=== PATIENT | female | born 1975 | race Caucasian/White ===

== ENCOUNTER 2016-09-10 05:59 | Inpatient (IN) | payer OTHER ==
[~2016-09-10] VITALS: Ht 160 cm; Wt 58.8 kg
[2016-09-10] VITALS (23 sets, daily range): BP systolic 94–140; BP diastolic 56–83; PULSE 56–86; RESP 12–18; Ht 160 cm; Wt 58.8 kg
[~2016-09-10 05:59] MED LIST: HYDR-762 PO
[2016-09-10] MEDS ORDERED: METOCLOPRAMIDE 10 MG INJ ONE (06:46)
[2016-09-10] MEDS ORDERED: SUCCINYLCHOLINE CHLORIDE 100 MG/5 ML SYG IV ONE (06:46)
[2016-09-10] MEDS ORDERED: FENTAnyl 50 MCG/ML VIAL ONE (06:46)
[2016-09-10] MEDS ORDERED: PROPOFOL 20 ML ONE (06:46)
[2016-09-10] MEDS ORDERED: ROCURONIUM 50 MG INJ ONE (06:46)
[2016-09-10] MEDS ORDERED: ONDANSETRON 4 MG INJ ONE (06:46)
[2016-09-10] MEDS ORDERED: CEFAZOLIN 1 GM INJ ONE (06:47)
--- NOTE | 2016-09-10 06:52 | PREOPHP ---
DATE OF ADMISSION: 09/10/2016 HISTORY OF PRESENT ILLNESS: This is a 40-year-old lady, 4, para 4. Her last normal menstru al period was a few days prior to admission. She was admitted for supracervical hysterectomy, possi ble REGINA and BSO. This patient bleeds very heavy with her periods associated with blood clots for ma ny months and getting worse up to the time of admission. She had since known to have fibroid uterus . She had cervical polypectomy and endometrial biopsy done and the biopsy was normal. She never gautam d any abnormal Pap smear before. She also has chronic pelvic pain on the lower abdomen radiating to the back. She is known to be anemic as well. PAST PERSONAL HISTORY: No history of diabetes, TB, asthma. ALLERGIES: NO ALLERGIES. SOCIAL HISTORY: The patient does not smoke. She does not drink. MEDICATIONS: She takes iron. GYNECOLOGIC HISTORY: She had 4 sections. FAMILY HISTORY: Mother had cancer. She is 4, para 4 with 4 C-sections. REVIEW OF SYSTEMS: CARDIOVASCULAR: No chest pains. RESPIRATORY: No cough. GASTROINTESTINAL: No diarrhea, no vomiting. GENITOURINARY: No dysuria. PHYSICAL EXAMINATION: GENERAL: Reveals a conscious coherent lady and in no acute distress. VITAL SIGNS: Her blood pressure 120/80, pulse rate 80 per minute, respirations 16 per minute. BREASTS, HEART, AND LUNGS: Within normal limits. ABDOMEN: Soft. No organomegaly. PELVIC: Revealed the cervix to be firm, uterus about 18 weeks size, and adnexa were negative for ma sses. RECTAL: Confirmed the pelvic findings. EXTREMITIES: No pedal edema. ADMITTING DIAGNOSES: 1. Fibroid uterus. 2. Menorrhagia. 3. Anemia. 4. Chronic pelvic pain. PLAN: The patient is planned to have the above procedure. Dictated By: VARGAS REDDY MD NS/NTS Conf#: [id number] DID#: [id number] CC: VARGAS REDDY MD;*EndCC*
[2016-09-10] MEDS ORDERED: VASOPRESSIN 20 UNITS INJ ONE (07:03)
[2016-09-10] MEDS ORDERED: MEPERIDINE 25 MG INJ IV PRN (07:30)
[2016-09-10] MEDS ORDERED: ONDANSETRON 4 MG INJ IV PRN ×2 (07:30→14:00)
[2016-09-10] MEDS ORDERED: FENTAnyl 50 MCG/ML VIAL IV PRN (07:30)
[2016-09-10] MEDS ORDERED: HYDROmorphONE (0.2 MG/ML) 10ML SYG IV PRN ×3 (07:30)
[2016-09-10] MEDS ORDERED: NALOXONE (0.4 MG/ML) INJ IV PRN (07:30)
[2016-09-10] MEDS ORDERED: HYDROmorphONE 0.2 MG/ML PCA IV SCH ×2 (07:30→15:18)
[2016-09-10] MEDS: FENTAnyl 50 MCG/ML VIAL IV PRN ×2 (09:29→09:41)
[2016-09-10] MEDS ORDERED: DIPHENHYDRAMINE 50 MG INJ ONE (09:56)
[2016-09-10] MEDS ORDERED: BISACODYL 10 MG SUPP PR PRN (10:00)
[2016-09-10] MEDS ORDERED: ACETAMINOPHEN 500 MG TAB PO PRN (12:30)
[2016-09-10] MEDS: LACTATED RINGER'S 1,000 ML IV SCH ×3 (13:00→22:34)
--- NOTE | 2016-09-10 13:22 | OPR ---
DATE OF OPERATION: 09/10/2016 PREOPERATIVE DIAGNOSIS: Chronic pelvic pain, menorrhagia, and fibroid uterus. POSTOPERATIVE DIAGNOSIS: Chronic pelvic pain, menorrhagia, fibroid uterus, plus severe pelvic and a bdominal adhesions, polycystic ovaries and perineal relaxation. SURGEON: Vargas Frankel MD SAMPLE STITCHER: Otto Mullen MD ANESTHESIA: General. OPERATION PERFORMED: Exploratory laparotomy, supracervical hysterectomy, lysis of severe pelvic and abdominal adhesions, vaginal vault suspension and omental biopsy. OPERATIVE TECHNIQUE: Under general anesthesia, the patient was prepped and draped in the usual [facility] ion for abdominal surgery. After checking for the effect of the anesthesia, a Pfannenstiel incision , the previous scar was excised, a 14 cm skin incision was performed. The incision was carried from the skin up to the fascia. Upon opening the skin up to the fascia, small blood vessels were noted to be oozing and these were all cauterized. Fascia was opened transversely followed by splitting th e muscles vertically and the peritoneum vertically. Upon opening the abdominal cavity, the omentum was noted to be attached all over the parietal peritoneum. All these adhesions had to be lysed by s harp and blunt dissection. Then, the uterus was noted deeply attached to the anterior peritoneal wa ll from a thick band of adhesions. All these adhesions had to be lysed by sharp and blunt dissectio n, then the uterus was free. The left tube and the left ovary and right tube and the right ovary we re attached to the right pelvic wall. All these adhesions were lysed by sharp and blunt dissection. Both ovaries were noted to be of normal size with some small follicular cysts. Both tubes were he althy looking. Then, the uterus was pulled back from the pelvic cavity with the aid of a tenaculum. The uterus was noted to be about 8 weeks' size and soft. Then, the left utero-ovarian, left uterotubal ligament w as grasped with the Alexus as well as the right uterotubal and right utero-ovarian ligament, and the se were used for traction. The left round ligament was grasped with 2 Kochers and cut. A stick tie with 0 Vicryl was used and tagged. The left broad ligament was skeletonized for the development of the bladder flap. The left utero-ovarian, left uterotubal ligament was grasped with 2 Peterson clamp s and pulled back with a straight Alexus and cut. At first, a free tie with 0 Vicryl was used follo wed by Peterson suture. Bleeders were checked and there was no bleeding noted. Then, the same thing was done on the right side. Right round ligament was grasped with 2 Kochers and cut, a stick tie wi th 0 Vicryl was used and tagged. The right broad ligament was skeletonized for the development of t he bladder flap. The right utero-ovarian and right uterotubal ligament was grasped with 2 Peterson cl amps and pulled back with a straight Alexus and cut. At first a free tie with 0 Vicryl was used fol lowed by Peterson suture. Bleeders were checked and there was no bleeding noted. Then, the broad lig ament on both sides were skeletonized for the development of the bladder flap. Then, the left uteri ne vessels were brought to view. The left uterine vessels were grasped with 2 Peterson clamps and pul led back with a straight Alexus and cut. A stick tie with 0 Vicryl was used on its clamp. Same thi ng was done on the right side. The right uterine vessels were grasped with 2 Peterson clamps and pull ed back with a straight Alexus and cut. A stick tie with 0 Vicryl was used on its clamp. Bleeders were checked and there was no bleeding noted. Once again, the bladder was from the cervix by sharp and blunt dissection. About 5 more K ochers were placed at the paracervical tissue on the left and right sides and on each clamp the tiss ue was cut and a stick tie with 0 Vicryl was used. Bleeders were checked and there was no bleeding noted. Then, at first the body of the uterus was excised as the pelvis was noted to be deep. The r emaining cervix was grasped with 2 single-tooth tenaculums after placing 5 Kochers at the paracervic al tissue on the left and right sides, another piece of cervix was excised. Then, the remaining cer vix was grasped with 2 single-tooth tenaculum. Once again, the bladder was from the cervi x by sharp and blunt dissection. About 4 more Kochers were placed at the paracervical tissue on the left and right sides and on each clamp the tissue was cut and a stick tie with 0 Vicryl was used. Another piece of cervix was left. Two-thirds of the cervix was removed and one-third was left behin d, as this patient wanted to go only for supracervical hysterectomy. Then, the remaining cervix was grasped with 2 singe-tooth tenaculums and the remaining cervix was sutured in layers using 0 Vicryl continuous suture. Three layers were put in to close the cervix. The right angle of the cervix wa s sutured with the right paracervical tissue and in turn tied with the right round ligament for vagi nal vault suspension as it was noted to be loose. The vagina was noted to be loose. The same thing was done on the left side. Irrigation was done to check for any bleeders and there was no bleeding noted. After checking for a ny bleeders in which there were none, then all the stumps were checked for any bleeders and there wa s no bleeding noted. As mentioned, vaginal vault suspension was done on the left and right sides. Then, after irrigation, after checking for any bleeders in which there were none, then the raw area was covered with Surgicel. Then, after removing the body of the uterus, as the uterus was pulled ou t from the pelvic cavity, then the self-retaining retractor was put in. Then, the remainder of the hysterectomy was done with a self-retaining retractor. The bowels were packed away from the operati ve field with the aid of 6 wet lap sponges, then the bladder blade was put in place. After the procedure, after checking for any bleeders in which there were none and after correct spon ge count, needle count and instrument count, the abdomen was closed in the usual fashion using 0 Shashank ryl for the peritoneum, 0 Vicryl for the muscles, for the fascia 0 Vicryl continuous stitch was used followed by a few [id number] sutures for the subcutaneous tissue, it was closed with 3-0 Vicry l and the skin was closed with 3-0 Vicryl subcuticular suture was used. The patient tolerated the p rocedure well. Estimated blood loss about 200 mL. Vital signs were stable during and after the pro cedure. Also, omentum that was attached to the parietal peritoneum, a piece of omentum was excised and sent to pathology. Dictated By: VARGAS FRANKEL MD NS/NTS Conf#: [id number] DID#: [id number] CC: VARGAS FRANKEL MD;*[facility]*
[2016-09-10] MEDS ORDERED: DIPHENHYDRAMINE 50 MG INJ IV PRN (14:00)
[2016-09-10] MEDS: HYDROmorphONE 1 MG/ML SYG IV PRN ×3 (17:15→23:02)
[2016-09-11] MEDS: HYDROmorphONE 1 MG/ML SYG IV PRN ×4 (02:04→11:41)
[2016-09-11] MEDS: LACTATED RINGER'S 1,000 ML IV SCH ×5 (04:52→23:48)
[2016-09-11 06:00] LABS: ADD SCAN DIFF NO
[2016-09-11] MEDS ORDERED: BISACODYL 10 MG SUPP PR ONE ×2 (06:00→16:00)
[2016-09-11] MEDS ORDERED: MAGNESIUM HYDROXIDE 30ML CUP PO ONE (06:00)
[2016-09-11] MEDS: MAGNESIUM HYDROXIDE 30ML CUP PO SCH ×3 (06:00→16:57)
[2016-09-11 06:04] LABS: BASOPHILS % 0.4 % (0.0-2.0); EOSINOPHILS % 0.4 % (0.0-7.0); HEMATOCRIT 29.9 % (37.0-47.0); HEMOGLOBIN 9.5 g/dl (12.0-16.0); LYMPHOCYTES # 0.6 10^3/ul (0.8-2.9); LYMPHOCYTES % 12.2 % (15.0-51.0); MEAN CORPUSCULAR HEMOGLOBIN 27.7 pg (29.0-33.0); MEAN CORPUSCULAR HGB CONC 31.8 g/dl (32.0-37.0); MEAN CORPUSCULAR VOLUME 87.2 fl (82.0-101.0); MEAN PLATELET VOLUME 11.3 fl (7.4-10.4); MONOCYTE # 0.5 10^3/ul (0.3-0.9); MONOCYTES % 9.8 % (0.0-11.0); NEUTROPHIL # 3.9 10^3/ul (1.6-7.5); PLATELET COUNT 251 10^3/UL (140-415); RED BLOOD COUNT 3.43 10^6/ul (4.20-5.40); RED CELL DISTRIBUTION WIDTH 13.5 % (11.5-14.5); WHITE BLOOD COUNT 5.1 10^3/ul (4.8-10.8)
[2016-09-11 06:19] LABS: POTASSIUM 3.4 mmol/L (3.5-5.1)
[2016-09-11 06:21] LABS: ALBUMIN/GLOBULIN RATIO 1.15; BILIRUBIN,INDIRECT 0.5 mg/dl (0-1.1); BILIRUBIN,TOTAL 0.5 mg/dl (0.2-1.3); CREATININE 0.46 mg/dl (0.44-1.00); TOTAL PROTEIN 5.6 g/dl (6.1-8.1)
[2016-09-11 06:22] LABS: CALCIUM 7.7 mg/dl (8.4-10.2)
[2016-09-11 07:48] VITALS: BP 103/54; RESP 16
[2016-09-11] MEDS ORDERED: OXYCODONE/ACETAMINOPHEN (5/325) TAB PO PRN ×4 (10:00→17:00)
[2016-09-11] MEDS: OXYCODONE/ACETAMINOPHEN (5/325) TAB PO PRN ×2 (15:15→21:08)
[2016-09-11] MEDS ORDERED: HYDROmorphONE 1 MG/ML SYG IV PRN (16:30)
[2016-09-11 19:00] VITALS: BP 110/55; RESP 16
[2016-09-11] MEDS: ONDANSETRON 4 MG INJ IV PRN (21:14)
[2016-09-12] MEDS: OXYCODONE/ACETAMINOPHEN (5/325) TAB PO PRN ×5 (04:17→21:39)
[2016-09-12 07:43] VITALS: BP 116/56; RESP 16
[2016-09-12] MEDS: MAGNESIUM HYDROXIDE 30ML CUP PO SCH ×2 (08:46→21:00)
[2016-09-12] MEDS: LACTATED RINGER'S 1,000 ML IV SCH ×2 (10:28→21:00)
[2016-09-12] MEDS: ONDANSETRON 4 MG INJ IV PRN (10:28)
[2016-09-12] MEDS ORDERED: MAGNESIUM HYDROXIDE 30ML CUP PO ONE (18:00)
[2016-09-12] MEDS ORDERED: BISACODYL 10 MG SUPP PR ONE (18:00)
[2016-09-12 20:23] VITALS: BP 109/53; RESP 18
[2016-09-13] MEDS: LACTATED RINGER'S 1,000 ML IV SCH ×3 (01:12→09:42)
[2016-09-13] MEDS: OXYCODONE/ACETAMINOPHEN (5/325) TAB PO PRN ×2 (01:38→10:03)
[2016-09-13 06:06] LABS: ADD SCAN DIFF NO
[2016-09-13 06:30] LABS: BASOPHILS % 0.2 % (0.0-2.0); EOSINOPHILS # 0.1 10^3/ul (0.0-0.5); EOSINOPHILS % 2.7 % (0.0-7.0); HEMATOCRIT 26.5 % (37.0-47.0); HEMOGLOBIN 8.4 g/dl (12.0-16.0); LYMPHOCYTES # 0.6 10^3/ul (0.8-2.9); LYMPHOCYTES % 14.4 % (15.0-51.0); MEAN CORPUSCULAR HEMOGLOBIN 27.6 pg (29.0-33.0); MEAN CORPUSCULAR HGB CONC 31.7 g/dl (32.0-37.0); MEAN CORPUSCULAR VOLUME 87.2 fl (82.0-101.0); MEAN PLATELET VOLUME 11.4 fl (7.4-10.4); MONOCYTE # 0.4 10^3/ul (0.3-0.9); NEUTROPHIL # 3.3 10^3/ul (1.6-7.5); NEUTROPHILS % 73.2 % (39.0-77.0); PLATELET COUNT 230 10^3/UL (140-415); RED BLOOD COUNT 3.04 10^6/ul (4.20-5.40); RED CELL DISTRIBUTION WIDTH 13.8 % (11.5-14.5); WHITE BLOOD COUNT 4.4 10^3/ul (4.8-10.8)
[2016-09-13 06:52] LABS: CALCIUM 7.9 mg/dl (8.4-10.2); CREATININE 0.39 mg/dl (0.44-1.00); POTASSIUM 3.3 mmol/L (3.5-5.1)
[2016-09-13] MEDS ORDERED: DIPHENOXYLATE/ATROPINE TAB PO ONE (07:00)
[2016-09-13 08:03] VITALS: BP 105/57; RESP 18
[2016-09-13] MEDS: MAGNESIUM HYDROXIDE 30ML CUP PO SCH (08:12)
== END 2016-09-13 13:20 | disposition home or self-care (01) | DRG 743 ==
LOC: REC 05:59 → MS2 10:55
PROVIDERS: ADMIT Obstetrics & Gynecology; ATTEND Obstetrics & Gynecology
PROC: 0USG0ZZ Reposition Vagina, Open Approach (ICD-10-PCS; 2016-09-10)
PROC: 0DBS0ZX (ICD-10-PCS; 2016-09-10)
PROC: 0WJJ0ZZ Inspection of Pelvic Cavity, Open Approach (ICD-10-PCS; 2016-09-10)
PROC: 0UT90ZZ Resection of Uterus, Open Approach (ICD-10-PCS; principal; 2016-09-10 07:30)
DX: N92.0 Excessive and frequent menstruation with regular cycle (principal); D25.1 Intramural leiomyoma of uterus; D25.2 Subserosal leiomyoma of uterus; R10.2 Pelvic and perineal pain; D64.9 Anemia, unspecified; E28.2 Polycystic ovarian syndrome; N81.89 Other female genital prolapse
CPT/HCPCS: 80048; 80053; 84702; 85025; 86850; 86900; 86901; 87075; 87086; 88307; J0330; J0690; J1170; J1200; J2175; J2405; J2765; J3010; J7120

== ENCOUNTER 2016-09-20 16:56 | Inpatient (IN) | payer OTHER ==
[~2016-09-20] VITALS: Ht 162.6 cm; Wt 67.8 kg
[2016-09-20] MEDS ORDERED: morphine 2 MG INJ IV STA (18:25)
[2016-09-20] MEDS ORDERED: FAMOTIDINE 20 MG INJ IV STA (18:25)
[2016-09-20] MEDS ORDERED: SOD CHLORIDE 0.9% 1,000 ML IV STA (18:25)
[2016-09-20] MEDS ORDERED: ONDANSETRON 4 MG INJ IV STA (18:25)
--- NOTE | 2016-09-20 18:34 | ERD ---
ER Documentation Chief Complaint Date/Time DATE: 09/20/16 TIME: 18:30 Chief Complaint ap with vomiting, had hysterectomy 10 days ago HPI This is a 41-year-old female presenting to the emergency department for abdominal pain and vomiting 2 days. Patient had recent hysterectomy 10 days ago patient now has periumbilical and epigastric abdominal pain with intermittent vomiting. Patient describes pain as "tearing." Patient has had 6- 8 episodes of vomiting since yesterday. Nonbloody emesis. Patient had small amount of loose stool today. Nonbloody stool. No fevers or chills. No dysuria or hematuria. Patient has some pain to surgical site however most pain is in the periumbilical and epigastric region. Denies chest pain, shortness of breath or difficulty breathing. ROS All systems reviewed and are negative except as per history of present illness. Medications Home Meds Reported Medications Hydrocodone Bit-Acetaminophen* ([place]*) 10-325 Mg Tablet, 1 TAB PO BID Y for PAIN, TAB 05/15/15 Allergies Allergies: Coded Allergies: No Known Allergy (Unverified , 09/10/16) PMhx/Soc History of Surgery: Yes (csection x 4) Anesthesia Reaction: No Hx Neurological Disorder: No Hx Respiratory Disorders: No Hx Cardiac Disorders: No Hx Psychiatric Problems: No Hx Miscellaneous Medical Probl: Yes (anemia) Hx Alcohol Use: No Hx Substance Use: No Hx Tobacco Use: No Smoking Status: Never smoker Physical Exam Vitals Vital Signs Date Time Temp Pulse Resp B/P Pulse Ox O2 Delivery O2 Flow Rate FiO2 09/20/16 17:11 97.3 84 18 127/60 99 Physical Exam Const: Alert Head: Atraumatic Eyes: Normal Conjunctiva ENT: Normal External Ears, Nose and Mouth. Neck: Full range of motion..~ No meningismus. Resp: Clear to auscultation bilaterally Cardio: Regular rate and rhythm, no murmurs Abd: Soft, non distended. Normal bowel sounds, tenderness to periumbilical region with palpation. No masses palpated. Surgical site to suprapubic region with mild erythema. No drainage, warmth or induration. Skin: No petechiae or rashes Back: No midline or flank tenderness Ext: No cyanosis, or edema Neur: Awake and alert Psych: Normal Mood and Affect Result Diagram: 09/20/16 1830 09/20/16 1830 Results 24 hrs Laboratory Tests Test 09/20/16 18:30 09/20/16 19:49 White Blood Count 5.010^3/ul Red Blood Count 3.8710^6/ul Hemoglobin 10.5g/dl Hematocrit 32.7% Mean Corpuscular Volume 84.5fl Mean Corpuscular Hemoglobin 27.1pg Mean Corpuscular Hemoglobin Concent 32.1g/dl Red Cell Distribution Width 13.7% Platelet Count 92183^3/UL Mean Platelet Volume 9.6fl Neutrophils % 65.9% Lymphocytes % 23.8% Monocytes % 8.1% Eosinophils % 1.4% Basophils % 0.6% Nucleated Red Blood Cells % 0.0/100WBC Neutrophils # 3.310^3/ul Lymphocytes # 1.210^3/ul Monocytes # 0.410^3/ul Eosinophils # 0.110^3/ul Basophils # 0.010^3/ul Nucleated Red Blood Cells # 0.010^3/ul Sodium Level 138mmol/L Potassium Level 3.9mmol/L Chloride Level 101mmol/L Carbon Dioxide Level 26mmol/L Anion Gap 15 Blood Urea Nitrogen 8mg/dl Creatinine 0.51mg/dl Glucose Level 104mg/dl Calcium Level 9.2mg/dl Total Bilirubin 0.2mg/dl Direct Bilirubin 0.00mg/dl Indirect Bilirubin 0.2mg/dl Aspartate Amino Transf (AST/SGOT) 22IU/L Alanine Aminotransferase (ALT/SGPT) 38IU/L Alkaline Phosphatase 75IU/L Total Protein 7.1g/dl Albumin 4.2g/dl Globulin 2.90g/dl Albumin/Globulin Ratio 1.44 Lipase 77U/L Bedside Urine pH (LAB) 6.0 Bedside Urine Protein (LAB) Negative Bedside Urine Glucose (UA) Negative Bedside Urine Ketones (LAB) 1+ Bedside Urine Blood 2+ Bedside Urine Nitrite (LAB) Negative Bedside Urine Leukocyte Esterase (L Negative Current Medications Medications (Trade) Dose Ordered Sig/Fantasma Route PRN Reason Start Time Stop Time Status Last Admin Dose Admin Sodium Chloride (NS) 1,000 ml @ 1,000 mls/hr Q1H STAT IV 09/20/16 18:25 09/20/16 19:24 DC 09/20/16 18:41 Morphine Sulfate (morphine) 2 mg ONCE STAT IV 09/20/16 18:25 09/20/16 18:27 DC 09/20/16 18:42 Ondansetron HCl (Zofran Inj) 4 mg ONCE STAT IV 09/20/16 18:25 09/20/16 18:27 DC 09/20/16 18:41 Famotidine (Pepcid Iv) 20 mg ONCE STAT IV 09/20/16 18:25 09/20/16 18:27 DC 09/20/16 18:41 Morphine Sulfate (morphine) 4 mg ONCE STAT IV 09/20/16 19:07 09/20/16 19:08 DC 09/20/16 19:26 IV Flush 10 ml 10 ml STK-MED ONCE .ROUTE 09/20/16 21:32 09/20/16 21:33 DC 09/20/16 21:50 Sodium Chloride (NS) 100 ml @ ud STK-MED ONCE .ROUTE 09/20/16 21:32 09/20/16 21:33 DC 09/20/16 21:50 Iohexol (Omnipaque 300mg/ ml) 150 ml STK-MED ONCE .ROUTE 09/20/16 21:32 09/20/16 21:33 DC 09/20/16 21:50 Procedures/MDM ED COURSE: The patient was stable throughout ED course. I kept the patient and/or family informed of laboratory and diagnostic imaging results throughout the ED course. Laboratory CBC no significant anemia or infection CMP no significant electrolyte imbalance Lipase 77 Urine dip 2+ blood, 1+ ketones Imaging CT abdomen and pelvis Patient: SAADIA KIRKLAND : 1975 Age: 41 Sex: F MR #: [id number] DOS: 09/20/16 1825 Ordering MD: SHELLY SAMAYOA NP Location: [facility] Room/Bed: PROCEDURE: CT abdomen and pelvis without contrast. CLINICAL INDICATION: Status post hysterectomy 10 days ago now with periumbilical pain and epigastric pain with intermittent vomiting TECHNIQUE: CT scan of the abdomen and pelvis without contrast was performed on a multislice CT scanner utilizing axial imaging from the lung bases through the pubis symphysis. The patient was scanned without intravenous contrast. Sagittal and coronal reformatted images were made. The CTDIvol is 7.09 mGy and the DLP is 362.14 mGycm. One of the following 3 dose reduction techniques were used during this CT examination: automated exposure control; adjustment of the mA and /or kV according to patient size; or use of iterative reconstruciton technique. COMPARISON: None available FINDINGS: The lung bases are clear. The heart size is normal. No pericardial or pleural effusion is present. The visualized liver, spleen, pancreas, gallbladder, and bilateral adrenal glands are normal. The bilateral kidneys are normal. No evidence for hydroureteronephrosis or nephroureterolithiasis is present. The visualized aorta is normal without aneurysmal dilatation. The visualized bowel is non obstructive. No evidence for diverticulosis or diverticulitis is present. The presence of featureless segments of small bowel with small bowel wall thickening is present with mild small bowel dilatation measuring a maximum of 3.2 cm. This is compatible with an infectious or inflammatory etiology. Evaluation for Crohn disease is recommended and early or partial small bowel obstruction may be present in the distal small bowel. The patient is status post laparotomy changes with a fluid collection present in the anterior rectus musculature in the pelvis measuring 9.1 cm transverse by 1 cm in AP dimensions. The visualized pelvis demonstrates mild pelvic ascites status post recent hysterectomy changes. The urinary bladder is well distended. The surrounding osseous structures are remarkable for normal appearance to the spine without evidence for lytic or blastic lesions.. IMPRESSION: 1. Diffuse small bowel wall thickening and several segments of distended small bowel in the jejunum and ileum without clear transition point identified. Differential to include infectious or inflammatory etiologies and recommend follow-up to exclude early or partial small bowel obstruction. 2. Status post recent laparotomy changes with fluid collection in the anterior rectus pelvic musculature measuring 9.1 cm transverse by 1 cm in AP dimensions. 3. Status post hysterectomy changes with mild pelvic ascites. A call report was made to Shelly White at 09/20/2016 11:14:40 PM following the completion of the examination by the undersigned. EKG: As interpreted by Dr. Lozano Rate/Rhythm: Normal sinus rhythm with heart rate 68 beats per min QRS, ST, T-waves: No changes consistent w/ acute ischemia Impression: No evidence of ischemia or arrhythmia MDM: 41-year-old female presents emergency department for periumbilical and epigastric abdominal pain with vomiting. Patient had recent hysterectomy done 10 days ago and began having periumbilical pain radiating upward to epigastric region. Denies chest pain, shortness breath or difficulty breathing. No signs or symptoms of respiratory distress. IV access obtained and patient was given 1 L IV fluid bolus. Patient was also given 2 mg morphine with 4 mg Zofran. Patient continues to have abdominal pain and therefore another 4 mg morphine was given. Afebrile upon arrival. Patient states pain was diminished initially however on subsequent abdominal exams, patient continues to be tender at periumbilical region and epigastric region. No ascites noted on physical exam. CT abdomen pelvis reviewed by radiologist at diffuse small bowel wall thickening and several segments of distended small bowel in the jejunum and ileum without clear transition point identified. Recommend follow-up to exclude early or partial small bowel obstruction. Status post recent laparotomy changes with fluid collection in the anterior rectus pelvic musculature measuring 9.1 cm transverse by 1 cm in AP dimensions. Status post hysterectomy changes with mild pelvic ascites. Consulted Dr. Holt regarding this patient and we agree that patient should be admitted for further management and workup. Diagnosis is abdominal pain with vomiting. Rule out partial bowel obstruction vs. early bowel obstruction. Departure Diagnosis: Primary Impression: Abdominal pain Abdominal location: periumbilical Qualified Code: R10.33 - Periumbilical abdominal pain Additional Impression: Vomiting Vomiting type: unspecified Vomiting Intractability: non-intractable Nausea presence: with nausea Qualified Code: R11.2 - Non-intractable vomiting with nausea, unspecified vomiting type Condition: SHELLY Norris NP Sep 20, 2016 18:34
[2016-09-20 18:45] LABS: ADD SCAN DIFF NO
[2016-09-20 18:47] LABS: BASOPHILS % 0.6 % (0.0-2.0); EOSINOPHILS # 0.1 10^3/ul (0.0-0.5); EOSINOPHILS % 1.4 % (0.0-7.0); HEMATOCRIT 32.7 % (37.0-47.0); HEMOGLOBIN 10.5 g/dl (12.0-16.0); LYMPHOCYTES # 1.2 10^3/ul (0.8-2.9); LYMPHOCYTES % 23.8 % (15.0-51.0); MEAN CORPUSCULAR HEMOGLOBIN 27.1 pg (29.0-33.0); MEAN CORPUSCULAR HGB CONC 32.1 g/dl (32.0-37.0); MEAN CORPUSCULAR VOLUME 84.5 fl (82.0-101.0); MEAN PLATELET VOLUME 9.6 fl (7.4-10.4); MONOCYTE # 0.4 10^3/ul (0.3-0.9); MONOCYTES % 8.1 % (0.0-11.0); NEUTROPHIL # 3.3 10^3/ul (1.6-7.5); NEUTROPHILS % 65.9 % (39.0-77.0); PLATELET COUNT 408 10^3/UL (140-415); RED BLOOD COUNT 3.87 10^6/ul (4.20-5.40); RED CELL DISTRIBUTION WIDTH 13.7 % (11.5-14.5)
[2016-09-20 19:06] LABS: ALBUMIN 4.2 g/dl (3.3-4.9); ALBUMIN/GLOBULIN RATIO 1.44; BILIRUBIN,INDIRECT 0.2 mg/dl (0-1.1); BILIRUBIN,TOTAL 0.2 mg/dl (0.2-1.3); CALCIUM 9.2 mg/dl (8.4-10.2); CREATININE 0.51 mg/dl (0.44-1.00); POTASSIUM 3.9 mmol/L (3.5-5.1); TOTAL PROTEIN 7.1 g/dl (6.1-8.1)
[2016-09-20] MEDS ORDERED: morphine 4 MG/ML VIAL IV STA (19:07)
[2016-09-20 19:48] LABS: URINE BLOOD (Dip) POC 2+ (NEGATIVE)
[2016-09-20] MEDS ORDERED: SOD CHLORIDE 0.9% 100 ML ONE (21:32)
[2016-09-20] MEDS ORDERED: IOHEXOL 300MG/ML 150 ML BTL ONE (21:32)
--- NOTE | 2016-09-20 23:19 | RADRPT ---
PROCEDURE: CT abdomen and pelvis without contrast. CLINICAL INDICATION: Status post hysterectomy 10 days ago now with periumbilical pain and epigastr ic pain with intermittent vomiting TECHNIQUE: CT scan of the abdomen and pelvis without contrast was performed on a multislice [facility] utilizing axial imaging from the lung bases through the pubis symphysis. The patient was scann ed without intravenous contrast. Sagittal and coronal reformatted images were made. The CTDIvol is 7.09 mGy and the DLP is 362.14 mGycm. One of the following 3 dose reduction techniques were used during this CT examination: automated exp osure control; adjustment of the mA and /or kV according to patient size; or use of iterative recons truciton technique. COMPARISON: None available FINDINGS: The lung bases are clear. The heart size is normal. No pericardial or pleural effusion is present. The visualized liver, spleen, pancreas, gallbladder, and bilateral adrenal glands are normal. The bilateral kidneys are normal. No evidence for hydroureteronephrosis or nephroureterolithiasis is pr esent. The visualized aorta is normal without aneurysmal dilatation. The visualized bowel is non obstructive. No evidence for diverticulosis or diverticulitis is presen t. The presence of featureless segments of small bowel with small bowel wall thickening is present with mild small bowel dilatation measuring a maximum of 3.2 cm. This is compatible with an infectio us or inflammatory etiology. Evaluation for Crohn disease is recommended and early or partial small bowel obstruction may be present in the distal small bowel. The patient is status post laparotomy changes with a fluid collection present in the anterior rectus musculature in the pelvis measuring 9.1 cm transverse by 1 cm in AP dimensions. The visualized pelvis demonstrates mild pelvic ascites status post recent hysterectomy changes. The urinary bladder is well distended. The surrounding osseous structures are remarkable for normal appearance to the spine without evidenc e for lytic or blastic lesions.. IMPRESSION: 1. Diffuse small bowel wall thickening and several segments of distended small bowel in the jejunum and ileum without clear transition point identified. Differential to include infectious or inflamm atory etiologies and recommend follow-up to exclude early or partial small bowel obstruction. 2. Status post recent laparotomy changes with fluid collection in the anterior rectus pelvic muscul ature measuring 9.1 cm transverse by 1 cm in AP dimensions. 3. Status post hysterectomy changes with mild pelvic ascites. A call report was made to Shelly White at 09/20/2016 11:14:40 PM following the completion of the examination by the undersigned. RPTAT: HDC .Jany Castillo MD, MD Date Time Electronically viewed and signed by .Jany Castillo MD, on 09/20/2016 23:18 .C/
[2016-09-21] MEDS ORDERED: HYDROmorphONE 1 MG/ML SYG IV STA ×2 (00:48→06:43)
[2016-09-21] MEDS ORDERED: ONDANSETRON 4 MG INJ IV STA (00:48)
[2016-09-21] MEDS ORDERED: PIPER-TAZO 3.375 GM IV (PMX) 100 ML IVPB ONE (01:00)
--- NOTE | 2016-09-21 01:15 | EN ---
Date/Time of Note Date/Time of Note DATE: 09/21/16 TIME: 01:11 ER Progress Note The patient is a 41-year-old female, presenting to the ER because of diffuse abdominal pain for 2 days. She was initially seen by the PA in ED 2. The abdominal pain is diffuse, associated with nausea, vomiting. She recently had hysterectomy about 10 days ago and hot for . She denies diarrhea, constipation Physical exam Const: No acute distress. Head: Atraumatic. Eyes: Normal Conjunctiva. ENT: Normal External Ears, Nose and Mouth. Neck: Full range of motion. No meningismus. Resp: Clear to auscultation bilaterally. Cardio: Regular rate and rhythm, no murmurs. Abd: Soft, non distended, normal bowel sounds, hypoactive bowel sounds , diffuse and moderate abdominal tenderness, no rigidity, rebound, CVA tenderness Skin: No petechiae or rashes. Back: No midline or flank tenderness. Ext: No cyanosis, or edema. Neur: Awake and alert. No focal deficit Psych: Normal Mood and Affect. CT scan show probable acute partial small bowel obstruction She was treated with nasogastric tube connected to low intermittent suction, Zosyn IV, Dilaudid 1 mg IV for pain, Zofran IV for nausea with good response Consultation: I discussed the patient with the on-call general surgeon Dr Simpson , who was made aware of the lab, the treatment, the patient condition. He accepted the consult at 12:35 AM Diagnostic impression: Acute partial small bowel obstruction Disposition: I discussed the findings with the patient. I discussed the patient with her physician Dr. Fonseca who was made aware of the lab, the treatment, the patient condition. The patient is admitted to [place] at 12:35 am. SAÚL ANDREWS MD Sep 21, 2016 01:15
[2016-09-21] MEDS ORDERED: NACL 0.9% 3 ML SYG IV SCH (01:30)
[2016-09-21] MEDS ORDERED: ACETAMINOPHEN 325 MG TAB PO PRN (01:30)
[2016-09-21] MEDS: DEXTROSE 5%-0.45% NACL 1,000 ML IV SCH ×2 (01:46→14:41)
--- NOTE | 2016-09-21 02:45 | RADRPT ---
PROCEDURE: Chest. CLINICAL INDICATION: Chest pain. TECHNIQUE: Single frontal view of the chest was obtained. COMPARISON: 03/01/2015. FINDINGS: There is a nasogastric tube extending to the stomach. The cardiac silhouette is within normal limit s. The aortic arch is unremarkable. There is a calcified granuloma within the right lung base. Ther e is no focal consolidation, vascular congestion or pleural effusion. There is no pneumothorax. IMPRESSION: No evidence for active cardiopulmonary disease. Nasogastric tube in place. .Miles Cole MD, MD Date Time Electronically viewed and signed by .Miles Cole MD, on 09/21/2016 02:45 .T/
[2016-09-21] MEDS: morphine 2 MG INJ IV PRN ×3 (03:49→16:03)
[2016-09-21] MEDS: ONDANSETRON 4 MG INJ IV PRN ×3 (03:49→19:01)
[2016-09-21 03:55] LABS: ALBUMIN 3.2 g/dl (3.3-4.9)
[2016-09-21 03:58] LABS: ALBUMIN/GLOBULIN RATIO 1.06; BILIRUBIN,INDIRECT 0.4 mg/dl (0-1.1); BILIRUBIN,TOTAL 0.4 mg/dl (0.2-1.3); CREATININE 0.46 mg/dl (0.44-1.00); TOTAL PROTEIN 6.2 g/dl (6.1-8.1)
[2016-09-21] MEDS: PANTOPRAZOLE 40 MG INJ IV SCH (05:54)
[2016-09-21] MEDS ORDERED: BARIUM SULF 2% 450 ML BTL (BERRY SMOOTHIE) PO ONE ×2 (08:00→09:00)
--- NOTE | 2016-09-21 08:04 | CONS ---
DATE OF ADMISSION: 09/20/2016 DATE OF CONSULTATION: 09/21/2016 HISTORY OF PRESENT ILLNESS: Ms. Martinez is a 41-year-old female who presented to the emergency ro [facility] last night after 2 days of nausea, vomiting, and abdominal pain. The alexis ent recently underwent a total abdominal hysterectomy for some uterine tumor. The patient says her pain is diffuse. She had diarrhea on , but has not had a bowel movement or passed flatus si nce. PAST MEDICAL HISTORY: Noncontributory. PAST SURGICAL HISTORY: x4, as well as a total abdominal hysterectomy 10 days ago. MEDICATIONS: None. ALLERGIES: NO KNOWN DRUG ALLERGIES. PHYSICAL EXAMINATION: GENERAL: She is a well-nourished female, in some mild distress due to her NG tube. VITAL SIGNS: She is afebrile. Vital signs stable. CHEST: Clear to auscultation bilaterally. HEART: Regular rhythm. ABDOMEN: Soft, mildly distended, but significant tenderness to her Pfannenstiel incision. LABORATORY DATA: Reveal a white count of 5, hematocrit of 33, and platelets of 408. Sodium 140, po tassium 3, chloride 107, CO2 23, BUN and creatinine 7 and 0.46, glucose 108. A CT of the abdomen and pelvis revealed diffuse small bowel wall thickening in several segments of t he descending small bowel in the jejunum and ileum, without clear point Differentials include infectious or inflammatory etiologies. I would recommend follow up to exclude early or partial smal l-bowel obstruction. ASSESSMENT AND PLAN: Ms. Martinez is a 41-year-old female with abdominal pain, likely infectious o r inflammatory. 1. Recommend CT with oral and IV contrast to better elucidate the abdomen. 2. NG tube until passes flatus or has bowel movement. 3. I feel that the likelihood of this being a bowel obstruction is low. Dictated By: LANDON CORONADO/NTS Conf#: [id number] DID#: [id number]
[2016-09-21] MEDS ORDERED: IOHEXOL 300MG/ML 150 ML BTL ONE ×2 (10:49→10:50)
[2016-09-21] MEDS ORDERED: SOD CHLORIDE 0.9% 100 ML ONE (10:50)
--- NOTE | 2016-09-21 11:51 | RADRPT ---
PROCEDURE: CT abdomen and pelvis with contrast. CLINICAL INDICATION: Pain after hysterectomy TECHNIQUE: CT scan of the abdomen and pelvis with contrast [facility] The patient was scanned after administration of 90 cc of Isovue 300 intravenous contrast. Or al contrast was also administered. Sagittal and coronal reformatted images were obtained from the a xial source images. One or more of the following dose reduction techniques were used: - Automated exposure control. - Adjustment of the mA and/or kV according to patient size. - Use of iterative reconstruction technique. DLP 413.3 mGycm. CTDIvol 7.3 mGy COMPARISON: 09/20/2016 FINDINGS: There is trace bibasilar atelectasis. Gastric catheter extends into the body of the stomach.. Surgical changes are again seen hysterectomy and there is continued thickening of the anterior pelvi c wall musculature with a small amount of crescentic fluid within the wall in the area of surgery an d this measures up to 4.6 x 1.1 cm and appears slightly diminished in size and previously seen air w ithin the abdominal wall is also mildly diminished. There is continued fat stranding seen in the an terior retroperitoneal fat adjacent to the bladder with some mass effect upon the bladder and there is continued mild fat stranding and fluid seen in the low pelvis in the surgical bed. There is continued distension of proximal loops of small bowel and jejunum with mild wall thickening and there is a point of transition seen in the anterior low pelvis with there is wall thickening an d this is directly superior to the surgical bed and appears stable from prior study. Contrast exten ds through this area and into the rectum without a complete obstruction. There is no new abnormal f luid collection. There is a mildly distended appearance of the right ureter which is slightly increased from prior ex am and this extends into the low pelvis into the surgical bed. There is similar distension of the l eft ureter as well to a lesser degree in the enlarged appearance of both ureters is new from prior s tudy. There is normal density and enhancement of the liver with no focal lesion or biliary ductal dilatati on. The gallbladder is unremarkable without inflammation, and the portal vein is intact without thr ombus. The spleen is unremarkable without mass. The adrenal glands are within normal limits without mass. The pancreas is unremarkable without focal lesion or surrounding inflammatory changes. There are n o enlarged lymph nodes. The aorta is unremarkable and there is no acute osseous abnormality. Degenerative changes are seen i n the lumbar spine. IMPRESSION: Surgical changes of hysterectomy is seen with a small amount of residual air and fluid within the pe lvis in the surgical bed and there is continued fat stranding inflammation involving the anterior pe lvic fat and thickening of the lower anterior pelvic musculature with a continued crescentic area of fluid which could represent postoperative seroma or a small hemorrhage. There is a focal area of wall thickening and narrowing of the small bowel within the low pelvis just superior to the in the surgical bed with proximal dilatation of the small bowel and this is consist ent with a partial obstruction. Contrast is seen to flow through this area of narrowing distally in to the colon. There is mild distension of the bilateral ureters which is new from prior study and could represent partial obstructive changes of the ureters secondary to inflammation in the low pelvis surgery. RPTAT: AA .Dwaine Dickinson MD, MD Date Time Electronically viewed and signed by .Dwaine Dickinson MD, on 09/21/2016 11:51 .[place]/
[2016-09-21] MEDS: LORAZEPAM 2 MG INJ IV PRN ×2 (13:55→22:06)
--- NOTE | 2016-09-21 16:21 | QN ---
Documentation Comment [id number] EDEN ASCENCIO MD Sep 21, 2016 16:21
[2016-09-21] MEDS ORDERED: POTASSIUM CHLORIDE 250 ML IVPB ONE (16:30)
--- NOTE | 2016-09-21 17:21 | HP ---
DATE OF ADMISSION: 09/20/2016 HISTORY OF PRESENT ILLNESS: A 41-year-old female with a history of history of fibroid uterus, philip rhagia, anemia, chronic pelvic pain. The patient underwent exploratory laparotomy, supracervical hy sterectomy, lysis of severe pelvic and abdominal adhesion, vaginal wall suspension and omental biops y. Patient was discharged home previously by Dr. Flores Frankel with the diagnosis of superficial fo gene adenomyosis, intramural and subserosal leiomyoma, endocervical polyp, serosal adhesions, prolife rative endometrium, menorrhagia, anemia of chronic pelvic pain and perineal relaxation. The patient now presents with abdominal pain, has small-bowel obstruction and is being seen by Dr. Simpson. The patient's blood pressure 108/69, hematocrit 32.7, sodium 140, potassium 3. The patient had abdomin al pelvic CT scan done which shows postsurgical changes of hysterectomy seen with a small amount of residual air and [place] and fluid-filled within the pelvis and the sub-surgical bed. There is continue d fat stranding and inflammation surrounding the anterior pelvic fat and thickening of the lower abd ominal anterior pelvic musculature with continued crescentic area of fluid, which could represent po stoperative seroma or small hemorrhage. There is a focal area of wall thickening and narrowing of t he small bowel within the lower pelvis just superior in the surgical bed with the proximal dilatatio n of the small bowel. This is consistent with a partial obstruction, mild distention of the bilate ral ureter. Chest x-ray done, no evidence for active cardiopulmonary disease. Nasogastric tube in place. The patient had abdomen CT pelvis that shows diffuse small bowel thickening and several segm ents of distended small bowel in the duodenum and ileum without clear transition point identified, status post recent laparotomy changes and status post hysterectomy. The patient's family is at bed side. PAST MEDICAL HISTORY: Partial hysterectomy and as mentioned above. ALLERGY HISTORY: NEGATIVE. FAMILY HISTORY: Noncontributory. SOCIAL HISTORY: Negative. MEDICATION HISTORY: Patient at home is on [place]. REVIEW OF SYSTEMS: HEENT: Unremarkable. RESPIRATORY: Unremarkable. CARDIOVASCULAR: Unremarkable. ABDOMEN: As mentioned above. No hematemesis or melena. Complaining of nausea. EXTREMITIES: Unremarkable. [employer]ICIAN unremarkable. MUSCULOSKELETAL: Unremarkable. PHYSICAL EXAMINATION: GENERAL: The patient is awake, alert, anxious. VITAL SIGNS: Pulse 70, blood pressure 108/69. HEAD: Atraumatic, normocephalic. Pupils equal, reactive to light. NECK: Supple. No JVD. LUNGS: Clear. CARDIOVASCULAR: S1, S2 normal. ABDOMEN: Soft. Tender. Bowel sounds are hypoactive. Surgical scar noted in abdominal area. EXTREMITIES: There is no cyanosis, clubbing, or edema. CENTRAL NERVOUS SYSTEM: The patient is awake, alert, moving both upper and lower extremities. LABORATORY DATA: As mentioned above. IMPRESSION: 1. Abdominal pain. 2. Bowel obstruction. 3. The patient is status post superficial focal adenomyosis. Patient has exploratory laparotomy, s upracervical hysterectomy, lysis of severe pelvic and abdominal adhesions 4. Hypokalemia. PLAN: To keep her n.p.o., IV fluid, pain medication, surgical consultation. The patient will have electrolytes monitored. Dictated By: EDEN ASCENCIO MD BS/NTS Conf#: [id number] DID#: [id number]
[2016-09-21 17:30] VITALS: TEMP 98
[2016-09-21 18:29] VITALS: BP 119/70; PULSE 96; RESP 18
[2016-09-21] MEDS ORDERED: morphine 4 MG/ML VIAL IV PRN (19:30)
[2016-09-21] MEDS ORDERED: ZOLPIDEM 5 MG TAB PO PRN (19:30)
[2016-09-21 19:42] VITALS: BP 108/70; RESP 18
[2016-09-21 21:00] VITALS: Ht 162.6 cm; Wt 67.8 kg
[2016-09-21] MEDS ORDERED: morphine 2 MG INJ IV PRN (21:30)
[2016-09-21] MEDS: HYDROmorphONE 1 MG/ML SYG IV PRN (23:05)
[2016-09-22] MEDS: PHENOL 1.4% SOLN 180 ML BTL MT PRN ×3 (01:53→16:15)
[2016-09-22] MEDS: HYDROmorphONE 1 MG/ML SYG IV PRN ×6 (01:53→19:42)
[2016-09-22] MEDS: DEXTROSE 5%-0.45% NACL 1,000 ML IV SCH ×3 (02:17→16:17)
[2016-09-22] MEDS: PANTOPRAZOLE 40 MG INJ IV SCH (05:00)
[2016-09-22 07:31] VITALS: BP 115/71; RESP 20
[2016-09-22] MEDS: LORAZEPAM 2 MG INJ IV PRN (08:19)
[2016-09-22 08:27] LABS: ADD SCAN DIFF NO
[2016-09-22 08:36] LABS: BASOPHILS % 0.5 % (0.0-2.0); EOSINOPHILS # 0.1 10^3/ul (0.0-0.5); EOSINOPHILS % 1.9 % (0.0-7.0); HEMATOCRIT 30.4 % (37.0-47.0); HEMOGLOBIN 9.4 g/dl (12.0-16.0); LYMPHOCYTES # 0.8 10^3/ul (0.8-2.9); MEAN CORPUSCULAR HEMOGLOBIN 26.3 pg (29.0-33.0); MEAN CORPUSCULAR HGB CONC 30.9 g/dl (32.0-37.0); MEAN CORPUSCULAR VOLUME 85.2 fl (82.0-101.0); MEAN PLATELET VOLUME 10.1 fl (7.4-10.4); MONOCYTE # 0.4 10^3/ul (0.3-0.9); MONOCYTES % 8.3 % (0.0-11.0); NEUTROPHILS % 70.8 % (39.0-77.0); PLATELET COUNT 359 10^3/UL (140-415); RED BLOOD COUNT 3.57 10^6/ul (4.20-5.40); RED CELL DISTRIBUTION WIDTH 13.8 % (11.5-14.5); WHITE BLOOD COUNT 4.2 10^3/ul (4.8-10.8)
[2016-09-22 08:41] LABS: ALBUMIN 3.7 g/dl (3.3-4.9)
[2016-09-22 08:42] LABS: POTASSIUM 3.3 mmol/L (3.5-5.1)
[2016-09-22 08:44] LABS: ALBUMIN/GLOBULIN RATIO 1.23; BILIRUBIN,INDIRECT 0.3 mg/dl (0-1.1); BILIRUBIN,TOTAL 0.3 mg/dl (0.2-1.3); CREATININE 0.53 mg/dl (0.44-1.00); TOTAL PROTEIN 6.7 g/dl (6.1-8.1)
[2016-09-22 08:45] LABS: CALCIUM 8.8 mg/dl (8.4-10.2)
--- NOTE | 2016-09-22 15:25 | SP ---
DATE OF PROCEDURE: 09/22/2016 SUBJECTIVE: Ms. Martinez is hospital day 1 for partial small-bowel obstruction. The patient is fe eling better. She is having flatus. Her NG tube is really bothersome to her. OBJECTIVE: She is afebrile. Vital signs stable. She is passing urine freely. Her abdomen soft, m ildly distended with incisional tenderness. LABORATORY DATA: Revealed a white count of 4, hematocrit of 30, and platelets of 359. Sodium 137, potassium 3.3, chloride 100, CO2 of 27, BUN and creatinine 5 and 0.5, and a glucose of 105. ASSESSMENT AND PLAN: Ms. Martinez is a 41-year-old female with a resolving small-bowel obstruction . 1. She is to start on clears and NG tube clamp trial. We will hopefully remove the NG tube this af ternoon. 2. Soft diet. If she does well, we will advance her to soft diet tomorrow and possible discharge t omorrow. Dictated By: LANDON DEAL MD MAL/NTS Conf#: [id number] DID#: [id number] CC: EDEN ASCENCIO MD;*EndCC*
--- NOTE | 2016-09-22 18:31 | PN ---
Date/Time of Note Date/Time of Note DATE: 09/22/16 TIME: 18:30 Assessment/Plan VTE Prophylaxis VTE Prophylaxis Intervention: other Lines/Catheters IV Catheter Type (from Nrsg): Peripheral IV Assessment/Plan Chief Complaint/Hosp Course IMPRESSION: 1. Abdominal pain. 2. Bowel obstruction. 3. The patient is status post superficial focal adenomyosis. Patient has exploratory laparotomy, supracervical hysterectomy, lysis of severe pelvic and abdominal adhesions 4. Hypokalemia. 5 hypokalemia plan kcl per surgery Problems: Subjective 24 Hr Interval Summary Gastrointestinal: pain (better) Genitourinary: no complaints Exam/Review of Systems Vital Signs Vitals Vital Signs Date Time Temp Pulse Resp B/P Pulse Ox O2 Delivery O2 Flow Rate FiO2 09/22/16 07:31 98.1 76 20 115/71 99 09/21/16 18:29 Room Air Intake and Output 09/21/16 09/21/16 09/22/16 15:00 23:00 07:00 Intake Total 250 ml 1160 ml Output Total 300 ml Balance 250 ml 860 ml Exam Neck: supple Respiratory: clear to auscultation Cardiovascular: regular rate and rhythm Gastrointestinal: bowel sounds (bs+), soft Results Result Diagram: 09/22/16 0738 09/22/16 0738 Results 24 hrs Laboratory Tests Test 09/22/16 07:38 White Blood Count 4.2 L Red Blood Count 3.57 L Hemoglobin 9.4 L Hematocrit 30.4 L Mean Corpuscular Volume 85.2 Mean Corpuscular Hemoglobin 26.3 L Mean Corpuscular Hemoglobin Concent 30.9 L Red Cell Distribution Width 13.8 Platelet Count 359 Mean Platelet Volume 10.1 Neutrophils % 70.8 Lymphocytes % 18.0 Monocytes % 8.3 Eosinophils % 1.9 Basophils % 0.5 Nucleated Red Blood Cells % 0.0 Neutrophils # 3.0 Lymphocytes # 0.8 Monocytes # 0.4 Eosinophils # 0.1 Basophils # 0.0 Nucleated Red Blood Cells # 0.0 Sodium Level 137 Potassium Level 3.3 L Chloride Level 100 Carbon Dioxide Level 27 Anion Gap 13 Blood Urea Nitrogen 5 L Creatinine 0.53 Glucose Level 105 Calcium Level 8.8 Total Bilirubin 0.3 Direct Bilirubin 0.00 Indirect Bilirubin 0.3 Aspartate Amino Transf (AST/SGOT) 18 Alanine Aminotransferase (ALT/SGPT) 27 Alkaline Phosphatase 64 Total Protein 6.7 Albumin 3.7 Globulin 3.00 Albumin/Globulin Ratio 1.23 Medications Medications Current Medications Dextrose/Sodium Chloride (D5-1/2ns) 1,000 ml @ 80 mls/hr [id number] IV Last administered on 09/22/16 16:17; Admin Dose 80 MLS/HR; Start 09/21/16 at 01:17 Ondansetron HCl (Zofran Inj) 4 mg Q6H PRN IV NAUSEA AND/OR VOMITING Last administered on 09/21/16 19:01; Admin Dose 4 MG; Start 09/21/16 at 01:30 Acetaminophen (Tylenol Tab) 650 mg Q6H PRN PO PAIN LEVEL 1-3 OR FEVER; Start at 01:30 Pantoprazole (Protonix Iv) 40 mg DAILY@06 IV Last administered on 09/22/16 05: 00; Admin Dose 40 MG; Start 09/21/16 at 06:00 Lorazepam (Ativan) 1 mg Q8H PRN IV ANXIETY Last administered on 09/22/16 08:19 ; Admin Dose 1 MG; Start 09/21/16 at 14:00 Zolpidem Tartrate (Ambien) 5 mg HS PRN PO INSOMNIA Last administered on 20:33; Admin Dose 5 MG; Start 09/21/16 at 19:30 Hydromorphone HCl (Dilaudid) 1 mg Q3 PRN IV PAIN LEVEL 6-10 Last administered on 09/22/16 16:15; Admin Dose 1 MG; Start 09/21/16 at 23:00 Phenol 2 spray 2 spray Q2H PRN MT SORE THROAT Last administered on 09/22/16 16 :15; Admin Dose 2 SPRAY; Start 09/21/16 at 23:00 Potassium Chloride/Sodium Chloride (KCl/NS) 165 ml @ 55 mls/hr ONCE ONCE IVPB ; Start 09/22/16 at 18:30; Stop 09/22/16 at 21:29; Status EDEN PICKERING MD Sep 22, 2016 18:31
[2016-09-22 19:35] VITALS: BP 103/59; RESP 20
[2016-09-22] MEDS ORDERED: POTASSIUM CHLORIDE 30 MEQ in SOD CHLORIDE 0.9% 150 ML IVPB ONE (20:00)
[2016-09-23] MEDS: HYDROmorphONE 1 MG/ML SYG IV PRN ×2 (01:45→05:19)
[2016-09-23] MEDS: PANTOPRAZOLE 40 MG INJ IV SCH (05:17)
[2016-09-23 05:56] LABS: ADD SCAN DIFF NO
[2016-09-23 05:59] LABS: BASOPHILS % 0.5 % (0.0-2.0); EOSINOPHILS # 0.1 10^3/ul (0.0-0.5); EOSINOPHILS % 2.7 % (0.0-7.0); HEMATOCRIT 29.1 % (37.0-47.0); HEMOGLOBIN 9.1 g/dl (12.0-16.0); LYMPHOCYTES # 0.8 10^3/ul (0.8-2.9); LYMPHOCYTES % 22.1 % (15.0-51.0); MEAN CORPUSCULAR HEMOGLOBIN 26.6 pg (29.0-33.0); MEAN CORPUSCULAR HGB CONC 31.3 g/dl (32.0-37.0); MEAN CORPUSCULAR VOLUME 85.1 fl (82.0-101.0); MEAN PLATELET VOLUME 9.7 fl (7.4-10.4); MONOCYTE # 0.3 10^3/ul (0.3-0.9); MONOCYTES % 8.6 % (0.0-11.0); NEUTROPHIL # 2.4 10^3/ul (1.6-7.5); NEUTROPHILS % 65.8 % (39.0-77.0); PLATELET COUNT 346 10^3/UL (140-415); RED BLOOD COUNT 3.42 10^6/ul (4.20-5.40); RED CELL DISTRIBUTION WIDTH 13.7 % (11.5-14.5); WHITE BLOOD COUNT 3.7 10^3/ul (4.8-10.8)
[2016-09-23 06:24] LABS: ALBUMIN 3.5 g/dl (3.3-4.9)
[2016-09-23 06:25] LABS: POTASSIUM 3.7 mmol/L (3.5-5.1)
[2016-09-23 06:27] LABS: ALBUMIN/GLOBULIN RATIO 1.16; BILIRUBIN,INDIRECT 0.4 mg/dl (0-1.1); BILIRUBIN,TOTAL 0.4 mg/dl (0.2-1.3); CREATININE 0.46 mg/dl (0.44-1.00); TOTAL PROTEIN 6.5 g/dl (6.1-8.1)
[2016-09-23 06:28] LABS: CALCIUM 8.7 mg/dl (8.4-10.2)
[2016-09-23 07:30] VITALS: BP 92/51; RESP 20
[2016-09-23] MEDS: DEXTROSE 5%-0.45% NACL 1,000 ML IV SCH ×2 (08:38→15:45)
[2016-09-23 09:34] VITALS: BP 103/54; PULSE 77; RESP 18
--- NOTE | 2016-09-23 13:20 | PN ---
DATE: 09/23/2016 SUBJECTIVE: Ms. Martinez is now hospital day 3 for partial small-bowel obstruction. The patient i s feeling better. She is passing flatus and tolerating clears. She has minimal abdominal pain. OBJECTIVE VITAL SIGNS: She is afebrile. Vital signs stable. ABDOMEN: Soft, nontender, nondistended. LABORATORY DATA: Reveal a white count of 4, hematocrit of 29 and platelets of 346. ASSESSMENT AND PLAN: Ms. Martinez is a 41-year-old female with resolving small-bowel obstruction. Advance to soft diet today. If tolerates, hopefully discharge later this afternoon. Dictated By: LANDON CORONADO/JOSHUA Conf#: [id number] DID#: [id number]
--- NOTE | 2016-09-23 18:37 | PN ---
Date/Time of Note Date/Time of Note DATE: 09/23/16 TIME: 18:36 Assessment/Plan VTE Prophylaxis VTE Prophylaxis Intervention: other Lines/Catheters [facility] Peripheral IV Urinary Cath still in place: No Assessment/Plan Chief Complaint/Hosp Course IMPRESSION: 1. Abdominal pain.better 2. Bowel obstruction.better 3. The patient is status post superficial focal adenomyosis. Patient has exploratory laparotomy, supracervical hysterectomy, lysis of severe pelvic and abdominal adhesions 4. Hypokalemia.better plan per surgery ck cbc Problems: Subjective 24 Hr Interval Summary Subjective hx not possible: other (abd pain better,ng tube out) Exam/Review of Systems Vital Signs Vitals Vital Signs Date Time Temp Pulse Resp B/P Pulse Ox O2 Delivery O2 Flow Rate FiO2 09/23/16 09:34 77 18 103/54 98 Room Air 09/23/16 07:30 98.5 Intake and Output 09/22/16 09/22/16 09/23/16 15:00 23:00 07:00 Intake Total 1450 ml 405 ml Output Total 0 ml 0 ml Balance 0 ml 1450 ml 405 ml Exam Respiratory: clear to auscultation Cardiovascular: regular rate and rhythm Gastrointestinal: soft Musculoskeletal: nl extremities to inspection Extremities: normal pulses Results Result Diagram: 09/23/16 0542 09/23/16 0542 Results 24 hrs Laboratory Tests Test 09/23/16 05:42 White Blood Count 3.7 L Red Blood Count 3.42 L Hemoglobin 9.1 L Hematocrit 29.1 L Mean Corpuscular Volume 85.1 Mean Corpuscular Hemoglobin 26.6 L Mean Corpuscular Hemoglobin Concent 31.3 L Red Cell Distribution Width 13.7 Platelet Count 346 Mean Platelet Volume 9.7 Neutrophils % 65.8 Lymphocytes % 22.1 Monocytes % 8.6 Eosinophils % 2.7 Basophils % 0.5 Nucleated Red Blood Cells % 0.0 Neutrophils # 2.4 Lymphocytes # 0.8 Monocytes # 0.3 Eosinophils # 0.1 Basophils # 0.0 Nucleated Red Blood Cells # 0.0 Sodium Level 137 Potassium Level 3.7 Chloride Level 102 Carbon Dioxide Level 26 Anion Gap 13 Blood Urea Nitrogen 5 L Creatinine 0.46 Glucose Level 101 Calcium Level 8.7 Total Bilirubin 0.4 Direct Bilirubin 0.00 Indirect Bilirubin 0.4 Aspartate Amino Transf (AST/SGOT) 28 Alanine Aminotransferase (ALT/SGPT) 37 Alkaline Phosphatase 62 Total Protein 6.5 Albumin 3.5 Globulin 3.00 Albumin/Globulin Ratio 1.16 Medications Medications Current Medications Dextrose/Sodium Chloride (D5-1/2ns) 1,000 ml @ 80 mls/hr [id number] IV Last administered on 09/23/16 08:38; Admin Dose 80 MLS/HR; Start 09/21/16 at 01:17 Ondansetron HCl (Zofran Inj) 4 mg Q6H PRN IV NAUSEA AND/OR VOMITING Last administered on 09/21/16 19:01; Admin Dose 4 MG; Start 09/21/16 at 01:30 Acetaminophen (Tylenol Tab) 650 mg Q6H PRN PO PAIN LEVEL 1-3 OR FEVER; Start at 01:30 Pantoprazole (Protonix Iv) 40 mg DAILY@06 IV Last administered on 09/23/16 05: 17; Admin Dose 40 MG; Start 09/21/16 at 06:00 Lorazepam (Ativan) 1 mg Q8H PRN IV ANXIETY Last administered on 09/22/16 08:19 ; Admin Dose 1 MG; Start 09/21/16 at 14:00 Zolpidem Tartrate (Ambien) 5 mg HS PRN PO INSOMNIA Last administered on 20:33; Admin Dose 5 MG; Start 09/21/16 at 19:30 Hydromorphone HCl (Dilaudid) 1 mg Q3 PRN IV PAIN LEVEL 6-10 Last administered on 09/23/16 05:19; Admin Dose 1 MG; Start 09/21/16 at 23:00 Phenol (Chloraseptic Throat [place]) 2 spray Q2H PRN MT SORE THROAT Last administered on 09/22/16 16:15; Admin Dose 2 SPRAY; Start 09/21/16 at 23:00 EDEN ASCENCIO MD September 23, 2016 18:37
--- NOTE | 2016-09-23 19:48 | RADRPT ---
PROCEDURE: XR Abdomen. CLINICAL INDICATION: Partial small bowel obstruction with inflammatory changes in the segmental di stal small bowel. TECHNIQUE: AP abdomen x-ray. COMPARISON: CT examination the abdomen pelvis dated 02/21/2017. FINDINGS: Retained contrast material in the region of cecum and right colon as well as in the rectum. Previous ly seen oral contrast within the small bowel has cleared. Bowel gas pattern is otherwise nonobstruct b[place] and nonspecific. There is no plain film evidence of obstruction. There are no abnormal calcifications overlying the u rinary tracts. The osseus structures are unremarkable. IMPRESSION: Nonobstructive and nonspecific bowel gas pattern. RPTAT: UU Physician Elizabeth Date Time Electronically viewed and signed by Physician Elizabeth on 09/23/2016 19:48 RS/
[2016-09-23 19:57] VITALS: BP 95/57; RESP 18
[2016-09-24] MEDS: HYDROmorphONE 1 MG/ML SYG IV PRN (01:23)
[2016-09-24] MEDS: DEXTROSE 5%-0.45% NACL 1,000 ML IV SCH (01:25)
[2016-09-24] MEDS: PHENOL 1.4% SOLN 180 ML BTL MT PRN (01:25)
[2016-09-24 05:42] LABS: ADD SCAN DIFF NO
[2016-09-24 05:49] LABS: BASOPHILS % 0.6 % (0.0-2.0); EOSINOPHILS # 0.1 10^3/ul (0.0-0.5); EOSINOPHILS % 2.9 % (0.0-7.0); HEMATOCRIT 27.4 % (37.0-47.0); HEMOGLOBIN 8.6 g/dl (12.0-16.0); LYMPHOCYTES # 0.9 10^3/ul (0.8-2.9); LYMPHOCYTES % 27.6 % (15.0-51.0); MEAN CORPUSCULAR HEMOGLOBIN 26.7 pg (29.0-33.0); MEAN CORPUSCULAR HGB CONC 31.4 g/dl (32.0-37.0); MEAN CORPUSCULAR VOLUME 85.1 fl (82.0-101.0); MEAN PLATELET VOLUME 10.3 fl (7.4-10.4); MONOCYTE # 0.3 10^3/ul (0.3-0.9); MONOCYTES % 9.5 % (0.0-11.0); NEUTROPHIL # 1.9 10^3/ul (1.6-7.5); NEUTROPHILS % 59.4 % (39.0-77.0); PLATELET COUNT 355 10^3/UL (140-415); RED BLOOD COUNT 3.22 10^6/ul (4.20-5.40); RED CELL DISTRIBUTION WIDTH 13.8 % (11.5-14.5); WHITE BLOOD COUNT 3.2 10^3/ul (4.8-10.8)
[2016-09-24] MEDS: PANTOPRAZOLE 40 MG INJ IV SCH (05:51)
[2016-09-24 06:44] LABS: ALBUMIN 3.4 g/dl (3.3-4.9)
[2016-09-24 06:45] LABS: POTASSIUM 3.4 mmol/L (3.5-5.1)
[2016-09-24 06:47] LABS: ALBUMIN/GLOBULIN RATIO 1.17; BILIRUBIN,INDIRECT 0.3 mg/dl (0-1.1); BILIRUBIN,TOTAL 0.3 mg/dl (0.2-1.3); CALCIUM 8.7 mg/dl (8.4-10.2); CREATININE 0.45 mg/dl (0.44-1.00); TOTAL PROTEIN 6.3 g/dl (6.1-8.1)
[2016-09-24 07:29] VITALS: BP 96/53; RESP 20
[2016-09-24] MEDS ORDERED: POTASSIUM CHLORIDE (SR) 20 MEQ TAB PO STA (14:58)
[2016-09-24] MEDS ORDERED: ACET325T40 PO (15:18)
--- NOTE | 2016-09-24 15:18 | PDOCDIS ---
Discharge Instructions CONDITION Patient Condition: Stable HOME CARE INSTRUCTIONS: Special Diet: REGULAR ACTIVITY: Activity Restrictions: Slowly Increase Activity FOLLOW UP/APPOINTMENTS Appointments f/u own pcp 1 wk f/u dr osborne 1 wk EDEN ASCENCIO MD September 24, 2016 15:18
== END 2016-09-24 17:05 | disposition home or self-care (01) | DRG 390 ==
LOC: FTE 16:56 → MS2 09-21 01:10 → OBSVTOIN 09-23 16:21
PROVIDERS: ADMIT Internal Medicine Nephrology; ATTEND Internal Medicine Nephrology
DX: K56.60 Unspecified intestinal obstruction (principal); E87.6 Hypokalemia; R11.2 Nausea with vomiting, unspecified; Z90.710 Acquired absence of both cervix and uterus
CPT/HCPCS: 36415; 71010; 74000; 74177; 80053; 81003; 83690; 85025; 87081; 93005; 96365; 96375; 96376; C9113; G0378; J1170; J2060; J2270; J2405; J2543; J3480; J7030; J7042; Q9967

== ENCOUNTER 2017-08-09 06:17 | Emergency (ER) | END 2017-08-09 07:40 | disposition home or self-care (01) ==